=== PATIENT | male | born 1990 | race Caucasian/White ===

== ENCOUNTER → 2021-04-22 13:57 | Outpatient (BNVA) | payer OTHER, SELFPAY | PROVIDERS: Family Provider Family Medicine; PCP Family Medicine; Visit Provider Family Medicine | DX: J06.9 Acute upper respiratory infection, unspecified (principal); Z20.822 Contact with and (suspected) exposure to COVID-19 | CPT/HCPCS: 87400; 87635 ==

== ENCOUNTER 2023-07-02 08:46 | Day surgery (SDC) | payer SELFPAY ==
[2023-07-02] VITALS (16 sets, daily range): BP systolic 116–174; BP diastolic 69–95; PULSE 60–105; RESP 14–26; TEMP 36.4–37.1; O2SAT 95–100; BMI 25.7
--- NOTE | 2023-07-02 08:59 | PC.PHAR ---
pt states takes no prescription medications-pt states only takes tylenol otc prn-no meds show on ext med history
--- NOTE | 2023-07-02 09:07 | ECG_ITS ---
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 Measurements Intervals Exchange Rate: 62 P: 18 IN: 132 QRS: 124 QRSD: 93 T: 96 QT: 364 QTc: 370 Interpretive Statements SINUS RHYTHM INCOMPLETE RIGHT BUNDLE BRANCH BLOCK [90+ ms QRS DURATION, TERMINAL R IN V1/V2, 40+ ms S IN I/aVL/V4/V5/V6] LEFT POSTERIOR FASCICULAR BLOCK [QRS AXIS > 109, INFERIOR Q] Compared to ECG 05/10/2014 13:59:41 Incomplete right bundle-branch block now present Left posterior fascicular block now present Sinus tachycardia no longer present Short IN interval no longer present T-wave abnormality no longer present Electronically Signed On 07-02-2023 9:13:44 CDT by Kevin Maurice M.D. [id number]
[2023-07-02 09:11] LABS: Basophils # 0.1 10^3/uL (0.0-0.1); Basophils % 0.4 %; Eosinophils # 0.4 10^3/uL (0.0-0.8); Eosinophils % 2.7 %; Hematocrit 42.5 % (37-53); Lymphocytes # 1.2 10^3/uL (0.8-4.8); Lymphocytes % 8.9 %; Mean Corpuscular HGB Conc 33.6 g/dL (30-55); Mean Corpuscular Hemoglobin 31.3 pg (27-33); Mean Platelet Volume 9.3 fL (7.4-10.4); Monocytes # 0.8 10^3/uL (0.2-0.9); Monocytes % 6.1 %; Neutrophils # 10.68 10^3/uL (1.8-7.7); Neutrophils % 81.7 %; Nucleated Red Blood Cells % 0 %; Platelet Count 254 10^3/cmm (157-399); Red Blood Count 4.57 10^6/uL (3.85-5.65); Red Cell Distribution Width 12.3 % (12.1-15.1); White Blood Count 13.06 10^3/uL (3.29-11.43)
[2023-07-02] MEDS: sodium chloride 0.9% 1,000 ML 999 ML IV ×3 (09:16→13:03)
[2023-07-02 09:28] LABS: Alanine Aminotransferase 122 U/L (0-41); Albumin Level 4.5 g/dL (3.5-5.2); Alkaline Phosphatase 70 U/L (40-130); Anion Gap 14.1 (5-19); Aspartate Amino Transferase 35 U/L (0-40); Blood Urea Nitrogen 8 mg/dL (6-20); Carbon Dioxide 24 mmol/L (22-29); Chloride 103 mmol/L (98-107); Creatinine Clr Calc Pharmacy 176.8582; Globulin 2.6 g/dL (1.3-4.6); Glomerular Filtration Rate 132.4 mL/min (90-130); Glucose 125 mg/dL (65-115); Lipase 10 U/L (13-60); Osmolality Calculated 284 mOsm/kg (285-295); Potassium 4.1 mmol/L (3.5-5.1); Sodium 137 mmol/L (136-145); Total Bilirubin 0.9 mg/dL (0.15-1.2); Total Protein 7.1 g/dL (6.6-8.7)
--- NOTE | 2023-07-02 10:02 | CT_ITS ---
WS: [id number] Examination: CT abdomen pelvis w con* [id number] Reason for Exam: Lower abd pain Date: July 02, 2023 Comparison: None. DLP: 575.[address] scans at [facility] use at least one of these dose optimization techniques: automated e xposure control; mA and/or kV adjustment per patient size (includes targeted exams where dose is matc hed to clinical indication); or iterative reconstruction. Findings: The heart is normal in size. There is no pleural effusion. There is minimal basilar atelectasis or in filtrate suspected particularly on the right. The liver is prominent in size. Hepatic steatosis is suspected. In the upper liver beneath the diaphr agm there is a 14 mm hyperdense lesion. The gallbladder is present. The portal vein is patent. The spleen is enlarged. There is no adrenal mass. The kidneys are well-perfused. There is no stone or hydronephrosis. The aorta appears unremarkable The pancreas is not enlarged There is no small bowel obstruction. Fluid is identified in mildly prominent distal small bowel and p roximal colon. There is limited uncomplicated sigmoid diverticulosis. The appendix measures up to 8 mm the wall appears mildly prominent. I see no surrounding fluid or inf lammation. There is no free fluid or free air. Scattered mildly prominent mesenteric lymph nodes are identified. Mildly prominent inguinal lymph nod es are present. Impression: The liver is prominent in size with suspected hepatic steatosis. There is a 14 mm hyperdense lesion in the upper liver. This may represent a hemangioma however furthe r evaluation is needed. I recommend ultrasound of the liver. There is splenomegaly. There is no bowel obstruction. There is fluid in the distal small bowel and proximal colon. This may be related to enteritis or diarrheal state. The appendix is prominent without obvious associated inflammatory process. Laboratory and clinical co rrelation to exclude early appendicitis is needed. Prominent scattered lymph nodes are present.
[2023-07-02] MEDS: ondansetron 2 mg/ML SDV 2 mL 4 MG IVP (10:09)
[2023-07-02] MEDS: morphine 4 mg/mL SDV 1 mL IVP (10:11)
[2023-07-02] MEDS: iohexol 350 mg/mL 500 mL Btl (per mL) IV (10:22)
--- NOTE | 2023-07-02 10:37 | ED_ITS ---
HPI - Abdominal Pain 2 General: Chief Complaint: Abdominal Pain Stated Complaint: abd pain, N/V Time Seen by Provider: 07/02/23 08:51 Source: patient Mode of arrival: ambulatory History of Present Illness: 32-year-old male presents emergency room complaining of abdominal pain began yesterday morning persisted and worsened. Relates positive to the right side of his abdomen mid to lower abdomen he denies dysuria urgency or frequency hematuria no vomiting or diarrhea no hematemesis or coffee-ground emesis. No history of nephrolithiasis. MD elicited complaint: abdominal pain Onset (ago): minute(s) Pain Consistency: constant Location: None Quality: sharp Exacerbating factors: nothing Relieving factors: nothing Associated Symptoms: Reports GI cramping and poor appetite; Denies anorexia, belching, bloating, change in bowel habits, change in stool character, chills, coffee ground emesis, constipation, diarrhea, dyspepsia, dysuria, excessive flatus, fever(s), heartburn, hematochezia, hematuria, hematemesis, fecal incontinence, loose stools, melena, nausea, syncope and vomiting Review of Systems 2 Const: Denies: fever(s) or chills Card: Denies: chest pain or syncope Resp: Denies: dyspnea GI: Reports: GI cramping; Denies: abdominal pain, nausea, vomiting, hematemesis, coffee ground emesis, heartburn, diarrhea, constipation, bloating, belching, excessive flatus, fecal incontinence, change in bowel habits, change in stool character, hematochezia or melena : Denies: dysuria, urinary frequency, urinary urgency or hematuria Musc: Denies: neck pain or back pain Skin/Breast: Denies: rash PFSH ED 2 PFSH: Social History Smoking and tobacco/nicotine status: current every day tobacco/nicotine user Physical Exam 2 Const: GENERAL APPEARANCE: cooperative and comfortable O RIENTATION/CONSCIOUSNESS: Yes awake, Yes oriented to person, Yes oriented to place and Yes oriented to time HENMT: COMMON NORMALS: normocephalic, atraumatic and hearing grossly normal bilaterally HEAD & SCALP: normocephalic and atraumatic Resp: COMMON NORMALS: normal respiratory effort, No retractions, No use of accessory muscles and clear to auscultation bilaterally AUSCULTATION: clear to auscultation bilaterally Cardio: COMMON NORMALS: regular rate, regular rhythm and No murmurs present (Cardio) RATE: regular rate RHYTHM: regular rhythm GI: COMMON NORMALS: No hepatosplenomegaly present AUSCULTATION: Yes normoactive bowel sounds PALPATION: Yes Tenderness to palpation present (GI) Details: RLQ, Yes Guarding due to palpation present (GI) in the RLQ and Yes No hepatosplenomegaly present Extremity: COMMON NORMALS: normal to inspection, capillary refill normal, no clubbing, cyanosis or edema, no calf tenderness and no pedal edema Neuro: SENSORIUM/ORIENTATION: Yes oriented to person, Yes oriented to place and Yes oriented to time Skin: COMMON NORMALS: no rashes or lesions noted GENERAL SKIN EXAM: no rashes or lesions noted Course 2 Vital Signs: Vital signs: Vital Signs Temperature 97.6 F 07/02/23 08:54 Pulse Rate 61 07/02/23 12:11 Respiratory Rate 18 07/02/23 08:54 Blood Pressure 137/83 07/02/23 12:11 Pulse Oximetry 100 07/02/23 12:11 Oxygen Delivery Me thod Room Air 07/02/23 12:11 MDM - Abdominal Pain Medical Decision Making Acute appendicitis. Exam is very convincing for acute appendicitis than his history as well. Repeat exam focal tenderness to the right lower quadrant. Definitely has rebound. White count elevated with left shift. CT shows thickening of the appendix not a lot of inflammation and periappendiceal. Radiology report says possible early appendicitis. Based on his clinical presentation and his leukocytosis I do believe he has acute appendicitis. Dr. Patton was consulted he seen the patient in department. He is anticipating appendectomy. Patient given IV fluids Cipro and Flagyl. He will be taken from the ER to preop. Differential Diagnosis Likely abdominal pain, acute appendicitis and calculus of kidney Medical Records I reviewed the patient's medical records. Lab Data I reviewed the patient's lab results. 07/02/23 09:04 07/02/23 09:04 Labs/Radiology: Laboratory Results WBC 13.06 10^3/uL (3.29-11.43) H 07/02/23 09:04 RBC 4.57 10^6/uL (3.85-5.65) 07/02/23 09:04 Hgb 14.30 g/dL (11.27-16.99) 07/02/23 09:04 Hct 42.5 % (37-53) 07/02/23 09:04 MCV 93.0 fl (82-101) 07/02/23 09:04 MCH 31.3 pg (27-33) 07/02/23 09:04 MCHC 33.6 g/dL (30-55) 07/02/23 09:04 RDW 12.3 % (12.1-15.1) 07/02/23 09:04 Plt Count 254 10^3/cmm (157-399) 07/02/23 09:04 MPV 9.3 fL (7.4-10.4) 07/02/23 09:04 Neut % (Auto) 81.7 % 07/02/23 09:04 Lymph % (Auto) 8.9 % 07/02/23 09:04 [place] % (Auto) 6.1 % 07/02/23 09:04 Eos % (Auto) 2.7 % 07/02/23 09:04 Baso % (Auto) 0.4 % 07/02/23 09:04 Neut # (Auto) 10.68 10^3/uL (1.8-7.7) H 07/02/23 09:04 Lymph # (Auto) 1.2 10^3/uL (0.8-4.8) 07/02/23 09:04 Murray # (Auto) 0.8 10^3/uL (0.2-0.9) 07/02/23 09:04 Eos # (Auto) 0.4 10^3/uL (0.0-0.8) 07/02/23 09:04 Baso # (Auto) 0.1 10^3/uL (0.0-0.1) 07/02/23 09:04 Nucleated RBC % (auto) 0 % 07/02/23 09:04 Nucleated RBCs # 0.0 /100WBC 07/02/23 09:04 Sodium 137 mmol/L (136-145) 07/02/23 09:04 Potassium 4.1 mmol/L (3.5-5.1) 07/02/23 09:04 Chloride 103 mmol/L (98-107) 07/02/23 09:04 Carbon Dioxide 24 mmol/L (22-29) 07/02/23 09:04 Anion Gap 14.1 (5-19) 07/02/23 09:04 BUN 8 mg/dL (6-20) 07/02/23 09:04 Creatinine 0.7 mg/dL (0.7-1.2) 07/02/23 09:04 GFR Calculation 132.4 mL/min (90-130) H 07/02/23 09:04 Glucose 125 mg/dL (65-115) H 07/02/23 09:04 Calculated Osmolality 284 mOsm/kg (285-295) L 07/02/23 09:04 Calcium 9.0 mg/dL (8.5-10.5) 07/02/23 09:04 Total Bilirubin 0.9 mg/dL (0.15-1.2) 07/02/23 09:04 AST 35 U/L (0-40) 07/02/23 09:04 ALT 122 U/L (0-41) H 07/02/23 09:04 Alkaline Phosphatase 70 U/L (40-130) 07/02/23 09:04 Total Protein 7.1 g/dL (6.6-8.7) 07/02/23 09:04 Albumin 4.5 g/dL (3.5-5.2) 07/02/23 09:04 Globulin 2.6 g/dL (1.3-4.6) 07/02/23 09:04 Lipase 10 U/L (13-60) L 07/02/23 09:04 Urine Color Yellow (Yellow) 07/02/23 10:50 Urine Appearance Sl hazy (CLEAR) A 07/02/23 10:50 Urine pH 8 (5-7) H 07/02/23 10:50 Ur Specific [place] 1.015 (1.005-1.030) 07/02/23 10:50 Urine Protein Neg (Negative) 07/02/23 10:50 Urine Glucose (UA) Norm (Normal) 07/02/23 10:50 Urine Ketones Negative (Negative) 07/02/23 10:50 Urine Blood Neg (Negative) 07/02/23 10:50 Urine Nitrate Negative (Negative) 07/02/23 10:50 Urine Bilirubin Neg (Negative) 07/02/23 10:50 Prot Sulfosalicylic Acd Negative (Negative) 07/02/23 10:50 Urine Urobilinogen Norm mg/dL (Negative) 07/02/23 10:50 Ur Leukocyte Esterase Negative (Negative) 07/02/23 10:50 Urine RBC None /hpf (0-2) 07/02/23 10:50 Urine WBC Rare /hpf (0-5) 07/02/23 10:50 Ur Squamous Epith Cells None /hpf (0-5) 07/02/23 10:50 Amorphous Sediment Not Reportable 07/02/23 10:50 Urine Bacteria None /hpf (NONE) 07/02/23 10:50 Urine Mucus None /hpf 07/02/23 10:50 All radiology interpretation(s) finalized by discharge Discharge Plan Discharge Patient Disposition: Admitted As Inpatient Clinical Impression: Acute appendicitis Condition: Stable Prescriptions: No Action Tylenol Ex Str Rapid Release 500 mg Tablet 1,000 mg PO Q6H PRN (Reason: Pain) Coding Level of Care Code ED Stuffed Casing Tier for Arlet Martinez
[2023-07-02 11:18] LABS: Add Urine Microscopic? YES; Bilirubin Urine Neg (Negative); Blood Urine Neg (Negative); Glucose Urine UA Norm (Normal); Ketones Urine Negative (Negative); Leukocyte Esterase Urine Negative (Negative); Nitrate Urine Negative (Negative); Protein Urine Neg (Negative); Specific Gravity, Urine 1.015 (1.005-1.030); Sulfosalicylic Acid Urine Negative (Negative); Urine Appearance SL Hazy (CLEAR); Urine Color Yellow (Yellow); Urobilinogen Urine Norm (Negative); pH Urine 8 (5-7)
[2023-07-02 11:20] LABS: Add Urine Culture? No; WBC Urine RARE /hpf (0-5)
[2023-07-02] MEDS: ciprofloxacin 400 MG/200 ML PREMIX 200 MG IV (13:04)
--- NOTE | 2023-07-02 13:12 | P.HP_ITS ---
Providers/Chief Complaint 2 Chief Complaint: abd pain, N/V History of Present Illness Juan Antonio Jaime is a 32 year old male who presents to hospital with 1 day history of abdominal pain. He reports that this is the second time this has happened in the last several months. Yesterday began having diffuse abdominal pain but that localized into the right lower quadrant radiating to his back this morning. Palpation makes his pain worse. Nothing makes the pain better. He does report nausea and vomiting. Denies any diarrhea, constipation, hematochezia, melena and/or hematemesis. A CT of the abdomen pelvis shows a prominent appendix equivocal for appendicitis. He has a leukocytosis. Review of Systems 2 General: Reports: 10 or more systems reviewed and unremarkable except in HPI and below Medications/Allergies Home Medications Medication Instructions Recorded Confirmed Last Taken Type acetaminophen 500 mg tablet 1,000 mg PO Q6H PRN Pain 07/02/23 07/02/23 Unknown History Allergies Allergy/AdvReac Type Severity Reaction Status Date / Time Penicillins Allergy Mild HIVES Verified 07/02/23 08:59 PFSH Acute 2 PFSH: Social History Smoking and tobacco/nicotine status: current every day tobacco/nicotine user Vitals/I&O/Wt Last Vital Signs Temp 97.6 F 07/02/23 08:54 Pulse 64 07/02/23 13:10 Resp 18 07/02/23 08:54 BP 126/86 07/02/23 13:10 Pulse Ox 96 07/02/23 13:10 O2 Del Method Room Air 07/02/23 13:10 07/01/23 07/02/23 07/02/23 22:59 06:59 14:59 Intake Total 1000 / 1000 Balance 1000 / 1000 Weight last 48 hrs Weight 190 lb Physical Exam 2 Narrative: General : Patient is well developed , no acute distress, oriented x3 Head : Normal cephalic, a-traumatic. Ears : Pinnae and external canal are normal. Hearing is normal. Eyes : PERRLA, Sclera and injection are normal. No conjunctival discharge. Nose : Mucous membranes are without erythema. Throat : buccal mucosa is normal, gums are without significant recession or hypertrophy. Lungs : Equal chest rise bilaterally, no use of accessory muscles, trachea is midline. Cor : Rate and rhythm are normal. Abdomen : Soft, ND, tender right lower quadrant, negative Rovsing's, no g/r/m Extremities : No edema, no cyanosis or clubbing, dorsalis pedis pulses are present bilaterally, non-tender to palpation of calves. Upper extremities are normal bilaterally. Back : non-tender to palpation, no CVA tenderness. Neuro : CN II - XII intact, Upper and lower extremities have equal and full strength Data 07/02/23 09:04 07/02/23 09:04 A&P Assessment and plan (1) Acute appendicitis: Plan Laparoscopic Appendectomy The risks and benefits of the procedure, including but not limited to, bleeding, infection, scar, numbness, pain, damage to surrounding structures, conversion to an open procedure, were explained to the patient. He is understanding of the risks and wishes to proceed. Attestations 2 Medical Necessity Statement*: Patient may go home after the procedure if it is uncomplicated. If perforated he will need to stay in the hospital for at least 1 night in the hospital for IV antibiotics Coding Level of Care Code 37471 Diagnoses Acute appendicitis K35.80
--- NOTE | 2023-07-02 14:16 | ANES.PREANE2 ---
Pre-Anesthetic Assessment Height/Weight: Height 1.83 m Weight 86.183 kg Temp Pulse Resp BP Pulse Ox O2 Del Method 97.9 F 60 18 132/79 97 Room Air 07/02/23 13:19 07/02/23 13:19 07/02/23 13:19 07/02/23 13:19 07/02/23 13:19 07/02/23 13:19 Operation Date: 07/02/23 14:00 Proposed Procedures p Laparoscopic Appendectomy(Not Applicable) - Jama Patton DO Familial anesthetic complications: None Was Beta Opal taken within 24 hours: N/A Was Clonidine taken within 24 hours: N/A Last intake: Intake Last Liquid Date 07/02/23 Last Liquid Time 12:00 Last Solid Date 07/01/23 Last Solid Time 13:00 Social No alcohol and No tobacco Exam alert, oriented x 3, clear to auscultation bilaterally and regular rate & rhythm Airway Mallampati: Class II Dentition: partials and other Anesthetic Plan ASA status: 1 Anesthesia: General Risk of > 500 ml blood loss (7ml/kg in children): No Medications/Allergies Home Medications Medication Instructions Recorded Confirmed Last Taken Type acetaminophen 500 mg tablet 1,000 mg PO Q6H PRN Pain 07/02/23 07/02/23 Unknown History Allergies Allergy/AdvReac Type Severity Reaction Status Date / Time Penicillins Allergy Mild HIVES Verified 07/02/23 08:59 PFSH Anesthesia Social History Smoking and tobacco/nicotine status: current every day tobacco/nicotine user Data Anesthesia 07/02/23 09:04 07/02/23 09:04 Short CBC 07/02/23 Range/Units 09:04 WBC 13.06 H (3.29-11.43) 10^3/uL Hgb 14.30 (11.27-16.99) g/dL Hct 42.5 (37-53) % MCV 93.0 (82-101) fl Plt Count 254 (157-399) 10^3/cmm Neut % (Auto) 81.7 % Neut # (Auto) 10.68 H (1.8-7.7) 10^3/uL BMP 07/02/23 09:04 Sodium 137 Potassium 4.1 Chloride 103 Carbon Dioxide 24 BUN 8 Creatinine 0.7 Glucose 125 H Calcium 9.0 Liver Function 07/02/23 Range/Units 09:04 Total Bilirubin 0.9 (0.15-1.2) mg/dL AST 35 (0-40) U/L ALT 122 H (0-41) U/L Alkaline Phosphatase 70 (40-130) U/L Albumin 4.5 (3.5-5.2) g/dL Urine 07/02/23 Range/Units 10:50 Urine Color Yellow (Yellow) Urine Appearance Sl hazy A (CLEAR) Urine pH 8 H (5-7) Ur Specific [place] 1.015 (1.005-1.030) Urine Protein Neg (Negative) Urine Glucose (UA) Norm (Normal) Urine Ketones Negative (Negative) Urine Nitrate Negative (Negative) Urine Bilirubin Neg (Negative) Ur Leukocyte Esterase Negative (Negative) Urine RBC None (0-2) /hpf Urine WBC Rare (0-5) /hpf Cardiac Studies: No Data to Display
[2023-07-02] MEDS: metroNIDAZOLE IV 500 MG/100 ML PREMIX 100 MG IV (14:46)
[2023-07-02] MEDS: lidocaine-epi 2% PF 1:200,000 20 mL SDV INJECTION (15:19)
--- NOTE | 2023-07-02 15:31 | P.OP_ITS ---
Operative Report Date of procedure: July 02, 2023 Pre-op diagnosis: Acute appendicitis Post-op diagnosis: same Procedure done: Laparoscopic appendectomy Implants: none Specimens removed/disposition: Appendix Surgeon: Jama Patton DO Anesthesia: General and Local Estimated blood loss (mL): 5 Complications: None apparent Brief History: This very pleasant 32-year-old gentleman came to the hospital with a 1 day history of abdominal pain that localized to the right lower quadrant. He had leukocytosis and CT abdomen pelvis was equivocal for early acute appendicitis. Laparoscopic appendectomy was indicated. The risk and benefits were explained and documented. Procedure: Patient was wheeled into the operative room and placed on the OR table in a supine position. Abdomen was inspected prepped and draped in usual sterile fashion. Time-out was performed and all present were in agreement. A 15 blade scalp was used to make a stab incision in the left upper quadrant and intra- abdominal insufflation was achieved using a Veress needle. After localizing the tissue incisions were made and a 12 millimeter trocar was placed into the umbilicus as well as a 5mm in the right lower quadrant and a 5 mm in the left lower quadrant . The appendix was identified and was mildly inflamed. I used the Voyant to ligate the mesoappendix at the base. I then used 2 PDS endo-loops to snare the base of the appendix. I then used the Voyant to ligate the appendix distally. The appendix was removed from the abdomen using an Endo- Catch bag through the umbilical incision. I examined the abdomen and no further pathology was identified. Hemostasis was noted. I then closed the umbilical site with a Robert-Trav and 0 Vicryl suture in a figure of 8 fashion. All ports removed. Skin was washed and dried. Incisions were closed with 4 O Vicryl in a subcuticular interrupted fashion. Skin glue was applied. Patient tolerated the procedure well.
[2023-07-02] MEDS: HYDROcodone-acetaminophen 7.5-325 mg Tablet 1 TAB PO (16:34)
--- NOTE | 2023-07-02 16:45 | ANE.PACU2 ---
Inpatient post-anesthesia follow up: Airway intact: Yes Vital signs: Temperature 98.8 F Pulse Rate 83 Respiratory Rate 17 Blood Pressure 137/77 Pulse Oximetry 97 Oxygen Delivery Me thod Room Air Oxygen Flow Rate Fraction of Inspir ed Oxygen Hydration adequate: Yes Nausea and vomiting: No Pain level: 1 Mental status: Baseline
== END 2023-07-02 16:49 | disposition home or self-care (01) ==
LOC: ER 12:40 → OR 13:06
PROVIDERS: Emergency Provider Family Medicine; Visit Provider Surgery
PROC: 0DTJ4ZZ Resection of Appendix, Percutaneous Endoscopic Approach (ICD-10-PCS; CPT 44970; principal; 2023-07-02 14:00)
DX: K35.80 Unspecified acute appendicitis (principal); F17.200 Nicotine dependence, unspecified, uncomplicated
CPT/HCPCS: 44970; 36415; 74177; 80053; 81001; 83690; 85025; 88304; 93005; J0330; J0744; J1100; J2250; J2270; J2405; J2704; J3010; J3490; J7030; Q9967

== ENCOUNTER 2023-08-20 14:41 | Emergency (ER) | payer SELFPAY ==
[2023-08-20 14:56] VITALS: BP 135/87; PULSE 70; RESP 16; TEMP 36.6; O2SAT 98; BMI 25.0
--- NOTE | 2023-08-20 15:11 | DCPLANNER ---
Message sent to Ortho for urgent follow up
--- NOTE | 2023-08-20 15:14 | W.ED.EXTPRO ---
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 He is on the palmar aspect its roughly a centimeter he has no bleeding at this time he states that he feels like he cannot move his thumb all the way and flexion. He denies any pain currently. He is unsure when his last tetanus was Associated symptoms: Deny chest pain, fever(s) or rash Review of Systems Const: Denies: fever(s), chills, body aches or change in appetite ENMT: Denies: throat pain or dental pain Card: Denies: chest pain Resp: Denies: dyspnea GI: Denies: abdominal pain, nausea, vomiting or diarrhea Musc: Denies: neck pain or back pain Skin/Breast: Denies: rash Neuro: Denies: headache(s) PFSH ED PFSH: Social History Smoking and tobacco/nicotine status: current every day tobacco/nicotine user Physical Exam Const: COMMON NORMALS: no acute distress, patient oriented x3 and healthy appearing HENMT: COMMON NORMALS: normocephalic and atraumatic HEAD & SCALP: normocephalic and atraumatic Neck/C-Spine: COMMON NORMALS: full ROM and supple Chest: COMMONS NORMALS: normal inspection of the chest Resp: COMMON NORMALS: normal respiratory effort Cardio: COMMON NORMALS: regular rate, regular rhythm and No murmurs present (Cardio) RATE: regular rate RHYTHM: regular rhythm Extremity: NARRATIVE EXTREMITY EXAM: 1 cm laceration base of left thumb on the palmar aspect no bleeding at this time laceration is very small and able to see any deep structures he does have some limited flexion on exam of his thumb Neuro: COMMON NORMALS: patient oriented x3, moves all extremities and no focal motor deficits Psych: COMMON NORMALS: mental status grossly normal, Normal thought process present and cooperative THOUGHT PROCESS: Normal thought process present Skin: COMMON NORMALS: no rashes or lesions noted and no wounds GENERAL SKIN EXAM: no rashes or lesions noted Procedures Laceration Laceration 1: Site: hand Side (If applicable): left Size (cm): 1 Description: linear Depth: simple, single layer Pre-repair: wound explored Skin layer closed with: other (dermabond) Course Vital Signs: Vital signs: Vital Signs Temperature 97.8 F 08/20/23 14:56 Pulse Rate 70 08/20/23 14:56 Respiratory Rate 16 08/20/23 14:56 Blood Pressure 135/87 08/20/23 14:56 Pulse Oximetry 98 08/20/23 14:56 Oxygen Delivery Me thod Room Air 08/20/23 14:56 MDM - Extremity (Nontraumatic) Medical Decision Making Patient presents here with a thumb laceration he has some decreased flexion of the thumb lacerations very small unable to see the tendon but will place in a thumb spica and get follow-up with orthopedics to rule out a tendon laceration did close the wound with tissue adhesive updated on status Medical Records I reviewed the patient's medical records. All radiology interpretation(s) finalized by discharge Discharge Plan Discharge Patient Disposition: Home Clinical Impression: Laceration of thumb Condition: Stable Prescriptions: No Action acetaminophen 500 mg Tablet 1,000 mg PO Q6H PRN (Reason: Pain) Hold Instructions: Resume on 07/07/23. hydrocodone-acetaminophen 7.5-325 mg tablet 1 tab PO Q6H PRN (Reason: pain) Qty: 20 0RF Colace 100 mg capsule 100 mg PO BID Qty: 14 0RF Discharge Orders: Discharge ED (Routine); Ordered 08/20/23 Ordered By: Rianna Frank Referrals: Debi Anders MD [Physician] - 1-3 days Discharge Diet: Advance as tolerated Discharge Activity: Resume usual activity Patient Instructions: Finger Laceration (ED), Skin Adhesive Care (ED) Coding Level of Care Code ED Health Practice Manager for Arlet Martinez
[2023-08-20] MEDS: tetanus-dipt-pertussis 0.5 mL SDV IM (15:26)
== END 2023-08-20 15:56 | disposition home or self-care (01) ==
PROVIDERS: Emergency Provider Emergency Medicine
DX: S61.012A Laceration without foreign body of left thumb without damage to nail, initial encounter (principal); Z72.0 Tobacco use; W26.0XXA Contact with knife, initial encounter; Z23 Encounter for immunization
CPT/HCPCS: 12001; 90471; 90715; 99283

== ENCOUNTER 2024-12-18 20:12 | Inpatient (IN) | payer OTHER, MEDICAID, SELFPAY ==
--- OUTSIDE RECORDS SUMMARY | 2022-12-15 04:30 | XMS_ITS | Continuity of Care Document ---
Author Organization [facility] Address [address] [id number] [address] Phone Care Team Providers Care Storage Architect Name Role Phone Teja Adams DDS Unavailable Unavailable Allergies, Adverse Reactions, Alerts Substance Reaction Status Criticality No Known Allergies Active No Inform ation Medications Medication Instructions Dosage Effective Dates (start - stop) Status Comments [place] 10 mg-325 mg tablet take 1 tablet by oral route every 4 - 6 hours as needed for pain for tooth extraction - Active Lidocaine Viscous 2 % mucosal solution take 15 milliliter by oral route every 3 hours to affected area in mouth as needed for pain 15 milliliter - Active Keflex 250 mg capsule - Active Procedures Procedure Date Limited Oral Evaluation Problem Focused Extraction, Erupted Tooth Or Exposed Denise t (Elevati Intraoral Periapical First Film Limited oral eval, x-ray & 1st extractio n Intraoral Periapical First Film Limited Oral Evaluation Problem Focused Extraction, Erupted Tooth Or Exposed Denise t (Elevati Urgent Each Additional Extraction EDR Approval Note OFFICE/OUTPATIENT VISIT, EST OFFICE/OUTPATIENT VISIT, NEW Advance Directives Directive Yes / No Effective Date File Name No Information Encounters Encounter Description Practice Location Reason(s) For Visit Diagnoses Date Provider Providers Copied on Encounter [facility], [id number], [id number], [place] tel:[phone] [facility] Encounter for dental exam and cleaning w/o abnormal findings 3 Angie Lezama. [address], [place], [id number], [place]. tel:[phone] Referring Provider: Teja Adams, [address] [place], [address] . tel:[phone] [facility], [id number], [id number], [place] tel:[phone] [facility] No Information 4 No Information OFFICE/OUTPAT IENT VISIT, [facility], [id number], [id number], [place] tel:[phone] [facility] recent allergic reaction to keflex (chief complaint)m outh still bothering pt (chief complaint) No Information 4 No Information OFFICE/OUTPAT IENT VISIT, [facility], [id number], [id number], [place] tel:[phone] [facility] teeth pain (chief complaint) No Information 4 No Information Family History Family Member Type Diagnosis Age At Onset Maternal grandmother Problem (finding) alzheimer's dis ease Paternal grandfather Problem (finding) prostate cancer Payers Payer name Insurance type Covered libertarian ID Pedritotavares meredith(s) Nancy Bundled Slide [phone] Social History Type Description Quantity Date Captured Comments Sex Male Smoking Status No Information Gender Identity Male Chief Complaint And Reason For Visit No Information Reason For Referral Reason For Referral No Information History Of Present Illness Encounter Date Complaint History Of Prese nt Illness recent allergic reaction to kefl ex mouth still bothering pt teeth pain Functional Status Date Functional Assessmen t No Information Instructions Date Instruction Additional Infor mation pt has appt tomorrow with [facility] in [place], note for work given, no change in medications made at this visit Related to Inflammatory conditions of jaw llidocaine viscous g iven for pain Medication instructions were provided to the patient. The patient verbalized an understanding of all instructions. Related to Pain in tooth informed pt of [facility], or dentist of his choice to take care of his current dental needs The patient verbalized an understanding of all instructions/plan. Related to Dental caries, unspecified will treat with amox icillin Medication instructions were provided to the patient. F/U as needed. The patient verbalized an understanding of all instructions. Related to Inflammatory conditions of jaw Assessments Type Assessment Date No Information Patient Care Teams Name Effective Dates (start - stop) Status Members No Information
--- OUTSIDE RECORDS SUMMARY | 2023-12-15 03:15 | XMS_ITS ---
Author Organization [facility] edicine Address [address] [place] [address] Care Team Providers Care Coal Loader Name Role Phone Bridgett Garcia [phone] Allergies Allergen (clinical drug ingredient) Drug/Non Drug Allergy documented on EMR Reaction Allergy Type Onset Date Status PCN (uncoded) Unknown Allergy Active REASON FOR VISIT MQ Pre Emp DH Rach Clear, [employer] Pre-Employment. Social History Tobacco Use: Social History Observation Description Date Details (start date - stop date) Former Smoker NA - NA Smoking Question Answer Notes Smoking Status: former smoker Vital Signs Heart Rate 61 /min 12/15/2023 Blood pressure systolic 142 mm Hg 12/15/19 24 Blood pressure diastolic 86 mm Hg 024 Height 72 in 12/15/2023 Weight 193.4 lbs 12/15/2023 BMI 26.23 kg/m2 12/15/2023 Respiratory Rate 18 /min 12/15/2023 Oximetry 99 % 12/15/2023 Procedures Procedure Date Ordered Date Performed Result Body Sit e Vision Screening 12/15/2023 N/A Hearing Screening 12/15/2023 12/15/2023 N/A PFT 12/15/2023 N/A BTE 12/15/2023 12/15/2023 N/A Encounters Encounter Location Date Provider Diagnosis [facility] [address] [place] [address] 12/15/2023 Bridgett Garcia Encntr for general adult medical exam w/o abnormal findings Z00.00 Assessments Encounter Date Diagnosis (ICD Code) Assessment Notes Treatment Notes Treatment Clinical Notes Section Notes 12/15/2023 Encntr for general adult medical exam w/o abnormal findings (ICD-10 - Z00.00) Plan Of Treatment Pending Test Test Name Order Date Urinalysis, Routine 12/15/2023 Vision Screening 12/15/2023 Hearing Screening 12/15/2023 PFT 12/15/2023 DOT DRUG SCREEN 12/15/2023 RAPID READ DRUG SCREEN 12/15/2023 Next Appt Details Follow Up: Clear for PDT , R aubree: Progress Notes * Juan Antonio SANTACRUZ GDOB: [birth year] (34 yo M)Acc No.[id number]:12/15/2023 PRE EMP HWM Patient: Juan Antonio VARGAS Provider: Lor Garcia :1990 A ge:33 Y S ex:Male Date:12/15/2023 Address:[address] [place] [address], [id number] Subjective: * Chief Complaints: * 1 . MQ Pre Emp DH Rach Clear. 2. [employer] Pre-Employment.. * HPI: A DDITIONAL COMPLAINTS: The patient presents today for preemployment examination for [employer]. * ROS: G eneral/Constitutional: Denies C hange in appetite. D enies C hills. D enies F atigue. D enies F ever. D enies H eadache. D enies L ightheadedness. D enies S leep disturbance. D bryce [facility]: [facility]. R espiratory: Denies B reathing pattern. D enies C hest pain.?Denies C ough. D enies H emoptysis. D enies P ain with inspiration. D enies S hortness of breath at rest. D enies S hortness of breath with exertion. D enies?Sputum production. D enies W heezing. G astrointestinal: Denies A bdominal pain. D enies B lood in stool.?Denies C hange in bowel habits. D enies C onstipation. D enies D iarrhea.?Denies D ifficulty swallowing. D enies N ausea. D enies V omiting. ? N eurologic: Denies B alance difficulty. D enies C oordination.?Denies D ifficulty speaking. D enies D izziness. D enies F ainting. D enies G ait abnormality. D enies I rritability. D enies L oss of strength. D enies L oss of use of extremity. D enies L ow back pain. D enies P ain. D enies S eizures. D enies T ingling/Numbness. D enies T ransient loss of vision.?Denies T remor. P sychiatric: Denies A nxiety. D enies D epressed mood. D enies D ifficulty sleeping. D enies E ating disorder. D enies L oss of appetite.?Denies S tressors. D enies S ubstance abuse. D enies S uicidal thoughts. * Medical History: L eft knee pain - 2019 no injury, never had evaluation, Low Back Pain - 2019, no injury, never had evaluation. * Surgical History: e ustachian tuboplasy (child) , appendectomy , L hand tendon repair . * Hospitalization/Major Diagno stic Procedure: e ustachian tuboplasy (child) . * Social History: T obacco Use: S moking S moking Status: f ormer smoker S mokeless Tobacco Y es D rugs/Alcohol: A lcohol Use H ow often do you drink? O ccassionally * Medications: N one * Allergies: P CN. Objective: * Vitals: H R:61, BP:142/86mm Hg, Ht: 72, Wt: 193.4, BMI:26.23Index, RR: 18, Oxygen sat %:99%. Past Vitals:* 12/30/2022 BP:130/85mm Hg, BMI:25.09Ind ex * 10/23/2021 BP:131/79mm Hg, BMI:22.51Ind ex * Examination: G eneral Examination: GENERAL APPEARANCE: i n no acute distress, well developed, well nourished. HEAD: n ormocephalic, atraumatic. EYES: p upils equal, round, reactive to light and accommodation. EARS: n ormal. ORAL CAVITY: m ucosa moist. THROAT: c lear. NECK/THYROID: n good supple, full range of motion, no cervical lymphadenopathy. SKIN: n o suspicious lesions, warm and dry. HEART: n o murmurs, regular rate and rhythm, S1, S2 normal.? LUNGS: c lear to auscultation bilaterally. ABDOMEN: n ormal, bowel sounds present, soft, nontender, nondistended, no hernias noted on exam.. EXTREMITIES: n o clubbing, cyanosis, or edema, full range of motion, no painful joints. NEUROLOGIC: n onfocal, motor strength normal upper and lower extremities, sensory exam intact. Assessment: * Assessment: 1. E ncntr for general adult medical exam w/o abnormal findings - Z00.00 (Primary) ? Plan: * Treatment: ?LAB: RAPID READ DRUG SCREEN* Tyrell Ceja 12/15/2023 08:45:23 AM CDT >negative ?LAB: Urinalysis, Routine (Collection Date & Time - 12/15/2023)* Value Reference Range U rine-Color yellow * A ppearance clear * S pecific Willet 1.010 * p H 7.0 * G lucose neg * P rotein neg * O ccult Blood neg * B ilirubin neg * U robilinogen,Semi-Qn 0.2 * N itrite, Urine neg * K etones neg * W BC Esterase neg * Tyrell Ceja 12/15/2023 08:45:55 AM CDT >normal ?Procedure: Vision Screening* Tyrell Ceja 12/15/2023 08:47:19 AM CDT >Both 20/20, R 20/17, L 20/25---UNCORRECTED ?Procedure: PFT* Tyrell Ceja 12/15/2023 09:16:34 AM CDT >passed ?Procedure: Hearing Screening (Performed Date - 12/15/2023)* Value Reference Range H z 500 Left 10 * H z 1000 Left 155 * H z 2000 Left 5 * H z 3000 Left 15 * H z 4000 Left 15 * H z 6000 Left 30 * H z 8000 Left 10 * H z 500 Right 5 * H z 1000 Right 5 * H z 2000 Right 5 * H z 3000 Right 5 * H z 4000 Right 15 * H z 6000 Right 15 * H z 8000 Right 15 * Tyrell Ceja 12/15/2023 08:52:28 AM CDT >normal ?Procedure: BTE (Performed Date - 12/15/2023)* Value Reference Range B TE Results pass * Denise Lujan 12/15/2023 12 :07:14 PM CDT >pass * Procedure Codes: D SRR Drug Screen Rapid Read, HEARS HEARING SCREEN, PHYSI Physical Exam, DSDOT Drug Screen DOT, BTE Physical Demands Test, VISIS VISION SCREEN, URINE Urinalysis, PFT Pulmonary Function Test * Follow Up: C lear for PDT * Billing Information: * Visit Code: * Procedure Codes: DSRR Drug Screen Rapid Read. HEARS HEARING SCREEN. PHYSI Physical Exam. DSDOT Drug Screen DOT. BTE Physical Demands Test. VISIS VISION SCREEN. URINE Urinalysis. PFT Pulmonary Function Test. * Electronic signature of Celeste Garcia NP on 12/18/2024 at 08:22 PM CDT Sign off status: Pending * Provider: Lor Villafana Jose Date: 0 12/15/2023 Generated for Nina ayala/Kelvin/eTransmitting on: 12/18/2024 08:22 PM CDT History and Physical Notes * HPI (History of Present Illness) Category Sub-Category Detail Notes Category Not es ADDITIONAL COMPLAINTS The pa mariela presents today for preemployment examination for [employer]. Examination Category Sub-Category Detail Notes Category Not es General Examination GENERAL APPEARANCE: in no ac fannie distress, well developed, well nourished HEAD: normocephalic, atrau matic EYES: pupils equal, round, reactive to light and accommodation EARS: normal THROAT: clear NECK/THYROID: neck supple, full ra nge of motion, no cervical lymphadenopathy HEART: no murmurs, regular rate and rhythm, S1, S2 normal LUNGS: clear to auscultatio n bilaterally ABDOMEN: normal, bowel sounds present, soft, nontender, nondistended, no hernias noted on exam. NEUROLOGIC: nonfocal, motor stre ngth normal upper and lower extremities, sensory exam intact SKIN: no suspicious lesion s, warm and dry EXTREMITIES: no clubbing, cyanosi s, or edema, full range of motion, no painful joints ORAL CAVITY: mucosa moist
[2024-12-18 20:20] VITALS: BP 158/98; PULSE 83; RESP 20; TEMP 36.9; O2SAT 99; BMI 22.4
--- OUTSIDE RECORDS SUMMARY | 2024-12-18 20:22 | XMS_ITS | Patient Health Record ---
Author Organization [facility] Address [address] [place] [address] Support Name Relationship Address Phone Juan Antonio Jaime Guarantor Unknown [phone] Allergies Allergen (clinical drug ingredient) Drug/Non Drug Allergy documented on EMR Reaction Allergy Type Onset Date Status PCN (uncoded) Unknown Allergy Active Reason For Referral No Information Social History Tobacco Use: Social History Observation Description Date Details (start date - stop date) Former Smoker NA - NA Smoking Question Answer Notes Smoking Status: former smoker Plan Of Treatment Pending Test Test Name Order Date Urinalysis, Routine 12/15/2023 Vision Screening 06/05/2020 Vision Screening 10/23/2021 Vision Screening 12/30/2022 Vision Screening 12/15/2023 Hearing Screening 10/23/2021 Hearing Screening 06/05/2020 Hearing Screening 12/15/2023 PFT 07/09/2021 PFT 06/05/2020 PFT 12/15/2023 PFT 12/30/2022 DOT DRUG SCREEN 06/05/2020 DOT DRUG SCREEN 12/15/2023 DOT DRUG SCREEN 12/30/2022 BTE 06/05/2020 BTE 12/30/2022 RAPID READ DRUG SCREEN 06/05/2020 RAPID READ DRUG SCREEN 12/15/2023 RAPID READ DRUG SCREEN 12/30/2022 Insurance Providers Payer Name Payer Address Payer Phone Subscriber Number Group Number Insured Name Patient Relationship to Insured Coverage Start Date Coverage End Date [employer] [place] [address] [phone] Juan Antonio Jaime Self - patient is the insured James Pre-Emp [place] [employer] [place]/Sadia Tod Jaimeght Self - patient is the insured Medical (General) History Medical History History ICD Code Left knee pain - 2019 no injury, never h ad evaluation Low Back Pain - 2019, no injury, never h ad evaluation Surgical History Surgery Date(Month/Year) eustachian tuboplasy (child) appendectomy L hand tendon repair Hospitalization History Reason Date(Month/Year) eustachian tuboplasy (child)
--- NOTE | 2024-12-18 20:31 | ED.C_ITS ---
HPI - Psych 2 General: Chief Complaint: Psychiatric Symptoms Stated Complaint: 96 HOUR HOLD Time Seen by Provider: 12/18/24 20:20 History of Present Illness: Patient is a 74-year-old male that was talking to a friend, and apparently or allegedly stated he was going to kill himself. Patient denies any such conversation. He has 96-hour hold papers. He has not been to psychiatric lubin. Denies any drug intake. Associated symptoms: Deny homicidal ideation or suicidal ideation Related Data Home Medications ?Medication ?Instructions ?Recorded ?Confirmed acetaminophen 500 mg tablet 1,000 mg PO Q6H PRN Pain 0 07/02/23 08/26/23 Held on 07/02/23. Instructions: Resume on 07/07/23. Previous Rx's ?Medication ?Instructions ?Recorded docusate sodium 100 mg capsule 100 mg PO BID #14 caps 07/02/23 (Colace) hydrocodone 7.5 mg-acetaminophen 1 tab PO Q6H PRN pain #20 tabs 07/02/23 325 mg tablet Allergies Allergy/AdvReac Type Severity Reaction Status Date / Time Penicillins Allergy Mild HIVES Verified 07/02/23 08:59 Review of Systems 2 Const: Denies: fever(s), chills, body aches or change in appetite Eyes: Denies: change in vision, eye discharge or eye redness ENMT: Denies: throat pain, hoarseness, ear or mastoid pain, ear discharge, nasal discharge or nasal congestion Card: Denies: chest pain, palpitations, irregular heart rhythm or edema Resp: Denies: dyspnea, productive cough, non-productive cough or wheezing GI: Denies: abdominal pain, nausea, vomiting, diarrhea, constipation or hematochezia : Denies: dysuria, urinary frequency, urinary urgency, urinary hesitancy or hematuria Musc: Reports: other (thumb laceration); Denies: joint swelling, joint redness, joint warmth or joint stiffness Skin/Breast: Denies: rash Neuro: Denies: headache(s) Psych: Denies: suicidal ideation or homicidal ideation Mario/Lymph: Denies: enlarged lymph nodes or tender lymph nodes PFSH ED 2 PFSH: Social History Smoking and tobacco/nicotine status: former use of tobacco/nicotine Physical Exam 2 Const: COMMON NORMALS: no acute distress and patient oriented x3 GENERAL APPEARANCE: cooperative HENMT: COMMON NORMALS: normocephalic, moist oral mucous membranes and oropharynx normal HEAD & SCALP: normocephalic NOSE: No nasal discharge present THROAT: tonsils normal Eye: COMMON NORMALS: Equal, round and reactive pupils present GENERAL EYE: appearance normal, both eyes and all related structures PUPIL: Yes Equal, round and reactive pupils present Neck/C-Spine: GENERAL: Yes normal visual inspection CERVICAL SPINE: Yes cervical ROM normal and No Cervical spine tenderness Lymph: LYMPHATIC: no lymphadenopathy noted Chest: COMMONS NORMALS: normal inspection of the chest Resp: COMMON NORMALS: normal respiratory effort and clear to auscultation bilaterally AUSCULTATION: clear to auscultation bilaterally Cardio: COMMON NORMALS: regular rate, regular rhythm and No murmurs present (Cardio) RATE: regular rate RHYTHM: regular rhythm GI: COMMON NORMALS: Normal to inspection, nondistended, normoactive bowel sounds present, Soft to palpation and non-tender PALPATION: Yes Soft to palpation : COMMON NORMALS: Yes no CVA tenderness BLADDER/KIDNEY EXAM: Yes no CVA tenderness Back/Pelvis: COMMON NORMALS: no CVA tenderness Extremity: GENERAL: No cyanosis and No edema LEFT UPPER EXTREMITY: Yes hand & digits (left thumb laceration, laceration healing well, no s/s of infection) Neuro: COMMON NORMALS: patient oriented x3, moves all extremities, no focal motor deficits and gait normal SPEECH: speech normal Psych: COMMON NORMALS: mental status grossly normal Skin: COMMON NORMALS: no rashes or lesions noted and no wounds GENERAL SKIN EXAM: no rashes or lesions noted Course 2 Consultations: Consultation #1: Dr. Wilson excepted patient Vital Signs: Vital signs: Vital Signs Temperature 98.4 F 12/18/24 20:20 Pulse Rate 83 12/18/24 20:20 Respiratory Rate 20 H 12/18/24 20:20 Blood Pressure 158/98 12/18/24 20:20 Pulse Oximetry 99 12/18/24 20:20 [facility] - Psych Medical Decision Making Patient is a 34-year-old gentleman that was brought here for 96-hour hold by [facility]. He has court paperwork in process. Allegedly he told his friend he was suicidal. Patient denies all these events. Dr. Wilson accepted the patient. No other concerns on laboratory data. He feels improved after Zyprexa x 1. He has not had previous inpatient mental health hospitalization. He is pleasant, conversive. Medical Records I reviewed the patient's medical records. Lab Data I reviewed the patient's lab results. 12/18/24 20:44 12/18/24 20:44 Laboratory Results WBC 9.11 10^3/uL (3.29-11.43) 12/18/24 20:44 RBC 4.50 10^6/uL (3.85-5.65) 12/18/24 20:44 Hgb 13.40 g/dL (11.27-16.99) 12/18/24 20:44 Hct 38.8 % (37-53) 12/18/24: MCV 86.2 fl (82-101) 12/18/24 20: MCH 29.8 pg (27-33) 12/18/24 20: MCHC 34.5 g/dL (30-55) 12/18/24 20: RDW 13.0 % (12.1-15.1) 12/18/24 20: Plt Count 289 10^3/cmm (157-399) 12/18/24 20:44 MPV 9.5 fL (7.4-10.4) 12/18/24 20:44 Neut % (Auto) 79.0 % 12/18/24 20:44 Lymph % (Auto) 14.2 % 12/18/24 20:44 [place] % (Auto) 4.7 % 12/18/24 20: Eos % (Auto) 1.3 % 12/18/24 20:44 Baso % (Auto) 0.5 % 12/18/24 20:44 Neut # (Auto) 7.19 10^3/uL (1.8-7.7) 12/18/24: Lymph # (Auto) 1.3 10^3/uL (0.8-4.8) 12/18/24 20:44 [place] # (Auto) 0.4 10^3/uL (0.2-0.9) 12/18/24 20:44 Eos # (Auto) 0.1 10^3/uL (0.0-0.8) 12/18/24 20:44 Baso # (Auto) 0.1 10^3/uL (0.0-0.1) 12/18/24 20:44 Nucleated RBC % (auto) 0 % 12/18/24: Nucleated RBCs # 0.0 /100WBC 12/18/24 20:44 Sodium 139 mmol/L (136-145) 12/18/24 20:44 Potassium 3.5 mmol/L (3.5-5.1) 12/18/24 20:44 Chloride 103 mmol/L (98-107) 12/18/24 20:44 Carbon Dioxide 23 mmol/L (22-29) 12/18/24:44 Anion Gap 16.5 (5-19) 12/18/24:44 BUN 5 mg/dL (6-20) L 12/18/24 20:44 Creatinine 0.6 mg/dL (0.7-1.2) L 12/18/24 20:44 GFR Calculation 156.1 mL/min (90-130) H 12/18/24:44 Glucose 85 mg/dL (65-115) 12/18/24 20:44 Calculated Osmolality 285 mOsm/kg (285-295) 12/18/24: Calcium 8.8 mg/dL (8.5-10.5) 12/18/24:44 Total Bilirubin 0.4 mg/dL (0.15-1.2) 12/18/24 20:44 AST 22 U/L (0-40) 12/18/24:44 ALT 30 U/L (0-41) 12/18/24:44 Alkaline Phosphatase 92 U/L (40-130) 12/18/24 20:44 Total Protein 7.2 g/dL (6.6-8.7) 12/18/24 20:44 Albumin 4.7 g/dL (3.5-5.2) 12/18/24: Globulin 2.5 g/dL (1.3-4.6) 12/18/24 20:44 TSH 2.99 uIU/mL (0.27-4.20) 12/18/24 20:44 Urine Color Yellow (Yellow) 12/18/24 21:44 Urine Appearance Clear (CLEAR) 09/20/25 21:44 Urine pH 6.0 (5-7) 12/18/24 21:44 Ur Specific [place] 1.003 (1.005-1.030) L 12/18/24 21:44 Urine Protein Negative (Negative) 12/18/24 21:44 Urine Glucose (UA) Negative (Normal) 12/18/24 21:44 Urine Ketones Negative (Negative) 12/18/24 21:44 Urine Blood Negative (Negative) 12/18/24 21:44 Urine Nitrate Negative (Negative) 12/18/24 21:44 Urine Bilirubin Negative (Negative) 12/18/24 21:44 Urine Urobilinogen 0.2 mg/dL (Negative) 12/18/24 21:44 Ur Leukocyte Esterase Negative (Negative) 12/18/24 21:44 Urine RBC 0-2 /hpf (0-2) 12/18/24 21:44 Urine WBC 0-5 /hpf (0-5) 12/18/24 21:44 Ur Squamous Epith Cells 0-5 /hpf (0-5) 12/18/24 21:44 Amorphous Sediment Not Reportable 12/18/24 21:44 Urine Bacteria None seen /hpf (NONE) 12/18/24 21:44 Hyaline Casts 0-4 /lpf H 12/18/24 21:44 Salicylates < 0.3 mg/dL (3-10) L 12/18/24 20:44 Urine Opiates Screen Negative ng/mL (Negative) 12/18/24 21:44 Acetaminophen < 5.0 ug/mL (10-30) L 12/18/24 20:44 Ur Barbiturates Screen Negative ng/mL (Negative) 12/18/24 21:44 Ur Phencyclidine Scrn Negative ng/mL (Negative) 12/18/24 21:44 Ur Amphetamines Screen Negative ng/mL (Negative) 12/18/24 21:44 U Benzodiazepines Scrn Negative ng/mL (Negative) 12/18/24 21:44 Urine Cocaine Screen Negative ng/mL (Negative) 12/18/24 21:44 U Marijuana (THC) Screen Positive ng/mL (Negative) H 12/18/24 21:44 Ethyl Alcohol 64 mg/dL (0-10) H 12/18/24 20:44 No radiology studies performed this visit Discharge Plan Discharge Patient Disposition: Xfer Psychiatric Hosp Clinical Impression: Suicidal ideation Condition: Stable Discharge Diet: Usual diet Coding Level of Care Code ED Makeup Artistry Instructor for Arlet Martinez
--- NOTE | 2024-12-18 20:45 | PC.NURSE ---
96 Hour Involuntary Hold Patient Rights have been reviewed with the patient and a copy of the same has been provided to him. Prototyper Romy Bailey was present at bedside during the presentation of Rights.
[2024-12-18 20:55] LABS: Hematocrit 38.8 % (37-53); Hemoglobin 13.40 g/dL (11.27-16.99); Mean Corpuscular HGB Conc 34.5 g/dL (30-55); Mean Corpuscular Hemoglobin 29.8 pg (27-33); Mean Corpuscular Volume 86.2 fl (82-101); Nucleated Red Blood Cells % 0 %; Platelet Count 289 10^3/cmm (157-399); Red Blood Count 4.50 10^6/uL (3.85-5.65); White Blood Count 9.11 10^3/uL (3.29-11.43)
[2024-12-18 21:22] LABS: Alanine Aminotransferase 30 U/L (0-41); Albumin Level 4.7 g/dL (3.5-5.2); Alcohol Level 64 mg/dL (0-10); Alkaline Phosphatase 92 U/L (40-130); Anion Gap 16.5 (5-19); Aspartate Amino Transferase 22 U/L (0-40); Blood Urea Nitrogen 5 mg/dL (6-20); Calcium 8.8 mg/dL (8.5-10.5); Carbon Dioxide 23 mmol/L (22-29); Chloride 103 mmol/L (98-107); Globulin 2.5 g/dL (1.3-4.6); Glucose 85 mg/dL (65-115); Osmolality Calculated 285 mOsm/kg (285-295); Potassium 3.5 mmol/L (3.5-5.1); Sodium 139 mmol/L (136-145); Thyroid Stimulating Hormone 2.99 uIU/mL (0.27-4.20); Total Protein 7.2 g/dL (6.6-8.7)
[2024-12-18 21:25] LABS: Acetaminophen < 5.0 ug/mL (10-30); Creatinine Clr Calc Pharmacy 196.9610; Salicylate < 0.3 mg/dL (3-10)
--- NOTE | 2024-12-18 21:44 | ECG_ITS ---
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 Measurements Intervals [place] Rate: 60 P: 49 [place]: 149 QRS: 70 QRSD: 94 T: 55 QT: 384 QTc: 385 Interpretive Statements SINUS RHYTHM WITH MARKED SINUS ARRHYTHMIA POSSIBLE RIGHT VENTRICULAR CONDUCTION DELAY [RSR (QR) IN V1/V2] VOLTAGE CRITERIA FOR LVH [MEETS CRITERIA IN ONE OF: R(aVL), S(V1), R(V5), R(V5/V6)+S(V1)] Compared to ECG 07/02/2023 09:07:58 Left ventricular hypertrophy now present Incomplete right bundle-branch block no longer present Left posterior fascicular block no longer present Electronically Signed On 12-19-2024 17:46:18 CDT by Radha Gonzales M.D. [email or web address]
[2024-12-18 22:05] LABS: Glucose Urine UA Negative (Normal); Nitrate Urine Negative (Negative); Specific Gravity, Urine 1.003 (1.005-1.030)
[2024-12-18 22:10] LABS: Add Urine Microscopic? YES
[2024-12-18 22:12] LABS: PCP Screen Urine Negative (Negative)
[2024-12-18 23:43] VITALS: BP 149/90; PULSE 69; RESP 17; TEMP 37.1; O2SAT 100
[2024-12-19] VITALS (7 sets, daily range): BP systolic 140–156; BP diastolic 87–98; PULSE 62–81; RESP 17–18; TEMP 36.3–37; O2SAT 94–100; BMI 22.4
--- NOTE | 2024-12-19 06:28 | P.NPUHP_ITS ---
Providers/Chief Complaint 2 Admitting Physician: Norris Wilson MD Primary Care Provider: FARZAD Cano Chief Complaint: 96 HOUR HOLD HPI NPU History of Present Illness Juan Antonio Jaime is a 34 year old male who presented to the emergency department with the following report: Chief Complaint: Psychiatric Symptoms Stated Complaint: 96 HOUR HOLD Time Seen by Provider: 12/18/24 20:20 History of Present Illness: Patient is a 34-year-old male that was talking to a friend, and apparently or allegedly stated he was going to kill himself. Patient denies any such conversation. He has 96-hour hold papers. He has not been to psychiatric lubin. Denies any drug intake. Associated symptoms: Deny homicidal ideation or suicidal ideation. He was admitted to the neuropsychiatric unit for definitive treatment of those issues. He is unknown to [facility] psychiatry through inpatient or outpatient services and is unknown to any mental health or addiction services anywhere. He presented with a blood alcohol of 64 and a UDS positive for cannabis reporting that this was a misunderstanding. He acknowledges that he may have made a comment in relation to hurting himself but he reports it was the alcohol talking. 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 He presented today reporting: Chief complaint Acute exacerbation of anxiety and depressive symptoms following a stressful day. 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 Described recent stress related to moving out of an apartment into a camper on private land, managing scheduling, utilities installation, and coordinating logistics before leaving for a six-week work trip. Indicated that these circumstances have made things hectic and contributed to feeling upset. Described anxiety as a longstanding issue, identifying as a constant worrier particularly in relation to work responsibilities and scheduling. Noted that stress has increased recently due to financial strain from staying home longer than planned and needing to make up lost time at work. Denied experiencing persistent depression, stating that feelings of low mood were limited to the previous day and attributing them to having a bad day rather than ongoing depressive symptoms. Denied ever feeling suicidal or passively wishing not to wake up. Denied history of self-injurious behavior such as cutting or burning. Reported discomfort with large crowds but enjoys being outdoors; stated that outdoor gatherings do not bother him. 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 Also mentioned preferring gas pump readings to end on zeros, but denied broader obsessive- compulsive symptoms. Denied history of psychiatric hospitalization, counseling, or therapy as a child or adult. Reported brief participation in drug-in-law treatment around 2018?2019 but denied any possession-related legal issues or ongoing substance use concerns. Stated occasional beer consumption and use of marijuana for back pain since legalization, specifically avoiding prescription painkillers. Denied use of other substances including methamphetamine, opiates, mushrooms, or ecstasy. Family history notable for possible schizophrenia in a relative, though uncertain if formally diagnosed; sister is reportedly more knowledgeable about family mental health history. Denied family history of addiction (alcohol, drugs, gambling) and suicide attempts or deaths by suicide. Described parents fighting during childhood and subsequent separation in 1999; did not attribute separation to mental health issues and did not report abuse or neglect during childhood. Denied traumatic events in adult life that were difficult to process. Reported developing a heart murmur with irregular beat during infancy that resolved after approximately one year. No speech therapy, learning support, or special education classes required during school years. Reported quitting high school senior year and not completing GED after reviewing pretest materials. Reported being once and currently legally but not together with spouse. Has one biological daughter who will be eleven on March 09, 2025; attempts regular visitation every other weekend when home from work. Reported medical history includes splitting ears at age [age] or [age] and cutting tendon in left thumb requiring surgical repair; denied other surgeries or broken bones. Mental health history Had no prior psychiatric hospitalizations and no history of counseling or therapy. Never prescribed psychotropic medications for anxiety, depression, or other mental health conditions. Reports lifelong baseline anxiety related to occupational stress with occasional low mood during acute situational stressors but denies persistent depression. Denies past suicidal ideation, attempts, or self-injurious behavior. Endorses mild compulsive behaviors, such as arranging currency uniformly and ensuring precise fuel gauge readings. Family history significant for depression, anxiety, and a relative with schizophrenia. Social history Lives with girlfriend and her three children (ages 10, 17, and 20) in an apartment and arranging a move into a 31-foot camper on private land with water and power. Has one biological daughter (age 10, turning 11 on March 09, 2025) who is seen every other weekend. Works in the [employer] industry on a 28-days-on, 14-days-off schedule with next departure Friday; wakes most days by 4:30?5:00 AM and spends early hours fishing. Quit vaping, reports chewing tobacco since age 16?17 with cans lasting about one day and using pinch throughout the day. Drinks beer occasionally, often during work breaks, usually a six-pack of 12 oz bottles. Uses cannabis since legalization to relieve back pain from a radiculopathy. 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 Meds NPU Home Medications ?Medication ?Instructions ?Recorded ?Confirmed ?Last Taken ?Type No Known Home Medications 12/19/24/04/24 Unknown History Allergies Allergy/AdvReac Type Severity Reaction Status Date / Time Penicillins Allergy Mild HIVES Verified 07/02/23 08:59 PFS NPU 2 PFS: Social History Smoking and tobacco/nicotine status: former use of tobacco/nicotine Mental Status Exam 2 MSE Comments: This is a slender white male in hospital scrubs with appropriate grooming and eye contact. No abnormal movements except for mild psychomotor retardation. Cooperative with exam in no acute distress. Speech was normal rate and volume. Mood described as pretty good considering, affect congruent and euthymic. Thought process linear. Thought content: Patient denied suicidal or homicidal ideation, there were no delusions reported or noted, he did not report auditory or visual hallucinations. Reported feeling great today after experiencing a low mood recently, which was attributed to having a bad day. 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 Denied thoughts of violence or aggression against others. Experiences stress related to work schedule and moving to a new living situation. Denied visual hallucinations, delusions, and paranoia. Attention and concentration were intact and memory appeared reliable but none were formally tested. He is alert and oriented x 3. Insight, judgment and impulse control appeared fair. Vitals/I&O/Wt Last Vital Signs Temp 97.8 F 12/19/24 04:00 Pulse 80 12/19/24 04:00 Resp 17 12/19/24 04:00 BP 151/90 12/19/24 04:00 Pulse Ox 94 12/19/24 04:00 O2 Del Method Room Air 12/19/24 04:00 12/18/24 12/18/24 12/19/24 14:59 22:59 06:59 Intake Total 0 / 0 Balance 0 / 0 Weight last 48 hrs Weight 77.111 kg Data NPU 12/18/24 20:44 12/18/24 20:44 A&P Assessment and plan 1. Suicidal ideation: 2. Anxiety: 3. Alcohol intoxication: 4. 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 He endorses having anxiety and some occasional mood issues but nothing consistent with major depressive disorder and denies ever actively having passive wish or true suicidal thinking. He reports a desire to discharge as soon as possible after being evaluated. Anxiety is a chronic issue, with recent exacerbation due to situational stressors. No evidence of major depressive disorder; low mood described as transient and limited to a single day. No current or past suicidal ideation or self-injurious behavior. No psychotic symptoms, including paranoia, hallucinations, or delusions. No diagnosis of obsessive-compulsive disorder; compulsive behaviors limited to specific routines without functional impairment. No substance use disorder; alcohol and cannabis use reported as occasional and not problematic. Family history of schizophrenia noted, but no symptoms present. Plan Social workers will meet with the patient in the morning to obtain collateral information, including contacting the significant other and other relevant contacts to confirm the patient's current status and ensure comprehensive understanding of the situation. Information gathered will be communicated to Dr. Marquez prior to his evaluation to facilitate continuity of care. 1. Continue off of medication. 2. Continue every 15 minute checks for safety. 3. Encourage individual, group and milieu therapy. 4. Encourage sober living treatment after discharge at the highest level of care to which he is willing to commit. 5. Obtain collateral information. 6. Continue CIWA protocol. 7. Evaluate against the backdrop of the 96-hour hold PDMP PDMP Reviewed: Not Reviewed Involuntary Hold Information 2 Hold Status: Legal Status: 96 Hour Hold Date/Time Hold Expires: 0 12/24/24@0001 Attestations NPU 2 Medical Necessity Statement*: Inpatient hospitalization is medically necessary and the clinically appropriate intervention at this time. Will monitor/initiate medications and make changes as indicated. Patient will be in the hospital over 2 midnights. Likely length of stay 1-3 days. Coding Level of Care Code Acute Code for [facility] Fwd Diagnoses Suicidal ideation R45.851 Anxiety F41.9 Alcohol intoxication F10.929 Alcohol use F10.90
[2024-12-20] VITALS: BP 120/67; PULSE 63; RESP 16; TEMP 36.8; O2SAT 98
[2024-12-20 04:00] VITALS: BP 132/85; PULSE 65; RESP 14; TEMP 37.2; O2SAT 99
[2024-12-20 07:26] VITALS: BP 121/75; PULSE 73; RESP 16; TEMP 36.6; O2SAT 98
[2024-12-20] MEDS: multivitamin therapeutic Tablet 1 TAB PO (08:09)
[2024-12-20 11:58] VITALS: BP 148/92; PULSE 85; RESP 16; TEMP 36.6; O2SAT 100
[2024-12-20 16:00] VITALS: BP 146/91; PULSE 105; RESP 16; TEMP 36.7; O2SAT 97
--- NOTE | 2024-12-20 16:28 | P.NPUPN_ITS ---
Subjective NPU 2 Subjective: 34-year-old male admitted with suicidal ideation under context of alcohol abuse currently on a 96-hour hold. The patient had denied any suicidal thoughts. He had no active signs of drug or alcohol withdrawal. Patient had stated that he had made a mistake under the use of alcohol and had reported no significant history of alcohol abuse. He remained on a alcohol withdrawal protocol and did not require any Ativan for alcohol related withdrawal symptoms. Patient was quiet and somewhat cooperative on the milieu. He was able to attend groups. He had reported no prior history of depression and minimized any history of excessive anxiety or any prior history of suicide attempts. Mental Status Exam 2 MSE Comments: This is a slender white male in hospital scrubs with appropriate grooming and eye contact. No abnormal movements except for mild psychomotor retardation. He was cooperative with exam in no acute distress. His speech was normal in rate and volume. Mood described as good. His affect was restricted. Thought process was linear. Thought content: Patient denied suicidal or homicidal ideation. There were no delusions reported or noted, he did not report auditory or visual hallucinations. He Denied suicidal thoughts today. He denied any homicidal ideation. He Denied auditory or visual hallucinations, delusions, and paranoia. Attention and concentration were intact and memory appeared reliable but none were formally tested. He is alert and oriented x 3. Insight, judgment and impulse control appeared fair. Vitals/I&O/Wt Last Vital Signs Temp 98.1 F 12/20/24 16:00 Pulse 105 H 12/20/24 16:00 Resp 16 12/20/24 16:00 BP 146/91 12/20/24 16:00 Pulse Ox 97 12/20/24 16:00 O2 Del Method Room Air 12/20/24 16:00 Weight last 48 hrs Weight 75.07 kg Weight 77.111 kg Data NPU 12/18/24 20:44 12/18/24 20:44 A&P Assessment and plan 1. Suicidal ideation: 2. Anxiety: 3. Alcohol intoxication: 4. 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 He endorses having anxiety and some occasional mood issues but nothing consistent with major depressive disorder and denies ever actively having passive wish or true suicidal thinking. He reports a desire to discharge as soon as possible after being evaluated. Anxiety is a chronic issue, with recent exacerbation due to situational stressors. No evidence of major depressive disorder; low mood described as transient and limited to a single day. No current or past suicidal ideation or self-injurious behavior. No psychotic symptoms, including paranoia, hallucinations, or delusions. No diagnosis of obsessive-compulsive disorder; compulsive behaviors limited to specific routines without functional impairment. No substance use disorder; alcohol and cannabis use reported as occasional and not problematic. Family history of schizophrenia noted, but no symptoms present. Plan Social workers will meet with the patient in the morning to obtain collateral information, including contacting the significant other and other relevant contacts to confirm the patient's current status and ensure comprehensive understanding of the situation. Information gathered will be communicated to Dr. Marquez prior to his evaluation to facilitate continuity of care. 1. Continue off of medication. 2. Continue every 15 minute checks for safety. 3. Encourage individual, group and milieu therapy. 4. Encourage sober living treatment after discharge at the highest level of care to which he is willing to commit. 5. Obtain collateral information. 6. Continue CIWA protocol. 7. Evaluate against the backdrop of the 96-hour hold PDMP PDMP Reviewed: Not Reviewed Involuntary Hold Information 2 Hold Status: Legal Status: 96 Hour Hold Date/Time Hold Expires: 12/24/24 @ 00:01 Attestations NPU 2 Medical Necessity Statement*: Inpatient hospitalization is medically necessary and the clinically appropriate intervention at this time. Will monitor/initiate medications and make changes as indicated. The patient's likely length of stay 1-2 days. Coding Level of Care Code Acute Code for [facility] Fwd Diagnoses Suicidal ideation R45.851 Anxiety F41.9 Alcohol intoxication F10.929 Alcohol use F10.90
[2024-12-20 19:52] VITALS: BP 145/84; PULSE 63; RESP 17; O2SAT 100
[2024-12-21 06:00] VITALS: BP 115/75; PULSE 70; RESP 17; TEMP 36.8; O2SAT 98
--- NOTE | 2024-12-21 13:10 | P.NPUDS_ITS ---
Diagnoses at Discharge Discharge Diagnosis 1. Suicidal ideation: 2. Anxiety: 3. Alcohol intoxication: 4. Alcohol use: Reason for Visit Reason for Visit: 96 HOUR HOLD Brief History: History of Present Illness Juan Antonio Jaime is a 34 year old male who presented to the emergency department with the following report: Chief Complaint: Psychiatric Symptoms Stated Complaint: 96 HOUR HOLD Time Seen by Provider: 12/18/24 20:20 History of Present Illness: Patient is a 34-year-old male that was talking to a friend, and apparently or allegedly stated he was going to kill himself. Patient denies any such conversation. He has 96-hour hold papers. He has not been to psychiatric lubin. Denies any drug intake. Associated symptoms: Deny homicidal ideation or suicidal ideation. He was admitted to the neuropsychiatric unit for definitive treatment of those issues. He is unknown to [facility] psychiatry through inpatient or outpatient services and is unknown to any mental health or addiction services anywhere. He presented with a blood alcohol of 64 and a UDS positive for cannabis reporting that this was a misunderstanding. He acknowledges that he may have made a comment in relation to hurting himself but he reports it was the alcohol talking. 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 He presented today reporting: Chief complaint Acute exacerbation of anxiety and depressive symptoms following a stressful day. 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 Described recent stress related to moving out of an apartment into a camper on private land, managing scheduling, utilities installation, and coordinating logistics before leaving for a six-week work trip. Indicated that these circumstances have made things hectic and contributed to feeling upset. Described anxiety as a longstanding issue, identifying as a constant worrier particularly in relation to work responsibilities and scheduling. Noted that stress has increased recently due to financial strain from staying home longer than planned and needing to make up lost time at work. Denied experiencing persistent depression, stating that feelings of low mood were limited to the previous day and attributing them to having a bad day rather than ongoing depressive symptoms. Denied ever feeling suicidal or passively wishing not to wake up. Denied history of self-injurious behavior such as cutting or burning. Reported discomfort with large crowds but enjoys being outdoors; stated that outdoor gatherings do not bother him. 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 Also mentioned preferring gas pump readings to end on zeros, but denied broader obsessive- compulsive symptoms. Denied history of psychiatric hospitalization, counseling, or therapy as a child or adult. Reported brief participation in drug-in-law treatment around 2018?2019 but denied any possession-related legal issues or ongoing substance use concerns. Stated occasional beer consumption and use of marijuana for back pain since legalization, specifically avoiding prescription painkillers. Denied use of other substances including methamphetamine, opiates, mushrooms, or ecstasy. Family history notable for possible schizophrenia in a relative, though uncertain if formally diagnosed; sister is reportedly more knowledgeable about family mental health history. Denied family history of addiction (alcohol, drugs, gambling) and suicide attempts or deaths by suicide. Described parents fighting during childhood and subsequent separation in 1999; did not attribute separation to mental health issues and did not report abuse or neglect during childhood. Denied traumatic events in adult life that were difficult to process. Reported developing a heart murmur with irregular beat during infancy that resolved after approximately one year. No speech therapy, learning support, or special education classes required during school years. Reported quitting high school senior year and not completing GED after reviewing pretest materials. Reported being once and currently legally but not together with spouse. Has one biological daughter who will be eleven on March 09, 2025; attempts regular visitation every other weekend when home from work. Reported medical history includes splitting ears at age [age] or [age] and cutting tendon in left thumb requiring surgical repair; denied other surgeries or broken bones. Mental health history Had no prior psychiatric hospitalizations and no history of counseling or therapy. Never prescribed psychotropic medications for anxiety, depression, or other mental health conditions. Reports lifelong baseline anxiety related to occupational stress with occasional low mood during acute situational stressors but denies persistent depression. Denies past suicidal ideation, attempts, or self-injurious behavior. Endorses mild compulsive behaviors, such as arranging c urrency uniformly and ensuring precise fuel gauge readings. Family history significant for depression, anxiety, and a relative with schizophrenia. Social history Lives with girlfriend and her three children (ages 10, 17, and 20) in an apartment and arranging a move into a 31-foot camper on private land with water and power. Has one biological daughter (age 10, turning 11 on March 09, 2025) who is seen every other weekend. Works in the [employer] industry on a 28-days-on, 14-days-off schedule with next departure Friday; wakes most days by 4:30?5:00 AM and spends early hours fishing. Quit vaping, reports chewing tobacco since age 16?17 with cans lasting about one day and using pinch throughout the day. Drinks beer occasionally, often during work breaks, usually a six-pack of 12 oz bottles. Uses cannabis since legalization to relieve back pain from a radiculopathy. 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 Hospital Course Hospital Course During the hospitalization, the patient had routine laboratory studies which were within normal limits except for a few outliers.? Additionally, there was a general medical evaluation which was also within normal limits and revealed no new acute processes.? At the time of discharge, lethality was denied and psychosis was absent. Mood and anxiety were well managed.? The patient endorsed a plan to avoid all drugs of abuse and follow up with the aftercare recommendations of the treatment team.? He did not wish to consider medication options for managing depression or anxiety. He also refused outpatient therapy. The patient was evaluated and deemed to be absent credible lethality and had achieved the maximum benefit from an inpatient hospitalization, and so was discharged. ? Involuntary Hold Information Hold Status: Legal Status: 96 Hour Hold Date/Time Hold Expires: 12/24/24 @ 00:01 Mental Status Exam MSE Comments: This is a slender white male in hospital scrubs with appropriate grooming and eye contact. No abnormal movements except for mild psychomotor retardation. He was cooperative with exam in no acute distress. His speech was normal in rate and volume. Mood described as good. His affect was brighter on discharge. Thought process was linear. Thought content: Patient denied suicidal or homicidal ideation. There were no delusions reported or noted. He did not report auditory or visual hallucinations. He denied suicidal thoughts today. He denied any homicidal ideation. He denied auditory or visual hallucinations, delusions, and paranoia. Attention and concentration were intact and memory appeared reliable but none were formally tested. He is alert and oriented x 3. Insight, judgment and impulse control appeared fair. Discharge Data Studies Completed and Pending: Laboratory Results WBC 9.11 10^3/uL (3.2 9-11.43) 12/18/24 20:44 RBC 4.50 10^6/uL (3.8 5-5.65) 12/18/24 20:44 Hgb 13.40 g/dL (11.27 -16.99) 12/18/24: Hct 38.8 % (37-53) 12/18/24: MCV 86.2 fl (82-101) 12/18/24: MCH 29.8 pg (27-33) 12/18/24: MCHC 34.5 g/dL (30-55) 12/18/24:44 RDW 13.0 % (12.1-15.1 ) 12/18/24:44 Plt Count 289 10^3/cmm (157 -399) 12/18/24: MPV 9.5 fL (7.4-10.4) 12/18/24 20:44 Neut % (Auto) 79.0 % 12/18/24: Lymph % (Auto) 14.2 % 12/18/24: [place] % (Auto) 4.7 % 12/18/24: Eos % (Auto) 1.3 % 12/18/24:44 Baso % (Auto) 0.5 % 12/18/24:44 Neut # (Auto) 7.19 10^3/uL (1.8 -7.7) 12/18/24: Lymph # (Auto) 1.3 10^3/uL (0.8- 4.8) 12/18/24:44 [place] # (Auto) 0.4 10^3/uL (0.2- 0.9) 12/18/24 20:44 Eos # (Auto) 0.1 10^3/uL (0.0- 0.8) 12/18/24 20:44 Baso # (Auto) 0.1 10^3/uL (0.0- 0.1) 12/18/24 20:44 Nucleated RBC % (a uto) 0 % 12/18/24 20: Nucleated RBCs # 0.0 /100WBC 12/18/24 20:44 Sodium 139 mmol/L (136-1 45) 12/18/24:44 Potassium 3.5 mmol/L (3.5-5 .1) 12/18/24 20:44 Chloride 103 mmol/L (98-10 7) 12/18/24 20:44 Carbon Dioxide 23 mmol/L (22-29) 12/18/24:44 Anion Gap 16.5 (5-19) 12/18/24:44 BUN 5 mg/dL (6-20) L 12/18/24:44 Creatinine 0.6 mg/dL (0.7-1. 2) L 12/18/24 20:44 GFR Calculation 156.1 mL/min (90- 130) H 12/18/24 20:44 Glucose 85 mg/dL (65-115) 12/18/24 20:44 Calculated Osmolal ity 285 mOsm/kg (285- 295) 12/18/24:44 Calcium 8.8 mg/dL (8.5-10 .5) 12/18/24 20:44 Total Bilirubin 0.4 mg/dL (0.15-1 .2) 12/18/24 20:44 AST 22 U/L (0-40) 12/18/24:44 ALT 30 U/L (0-41) 12/18/24 20:44 Alkaline Phosphata se 92 U/L (40-130) 12/18/24 20:44 Total Protein 7.2 g/dL (6.6-8.7 ) 12/18/24:44 Albumin 4.7 g/dL (3.5-5.2 ) 12/18/24 20:44 Globulin 2.5 g/dL (1.3-4.6 ) 12/18/24 20:44 TSH 2.99 uIU/mL (0.27 -4.20) 12/18/24 20:44 Urine Color Yellow (Yellow) 12/18/24 21:44 Urine Appearance Clear (CLEAR) 12/18/24 21:44 Urine pH 6.0 (5-7) 12/18/24 21:44 Ur Specific Gravit y 1.003 (1.005-1.0 30) L 12/18/24 21:44 Urine Protein Negative (Negati ve) 12/18/24 21:44 Urine Glucose (UA) Negative (Normal ) 12/18/24 21:44 Urine Ketones Negative (Negati ve) 12/18/24 21:44 Urine Blood Negative (Negati ve) 12/18/24 21:44 Urine Nitrate Negative (Negati ve) 12/18/24 21:44 Urine Bilirubin Negative (Negati ve) 12/18/24 21:44 Urine Urobilinogen 0.2 mg/dL (Negati ve) 12/18/24 21:44 Ur Leukocyte Emily ase Negative (Negati ve) 12/18/24 21:44 Urine RBC 0-2 /hpf (0-2) 12/18/24 21:44 Urine WBC 0-5 /hpf (0-5) 12/18/24 21:44 Ur Squamous Epith Cells 0-5 /hpf (0-5) 12/18/24 21:44 Amorphous Sediment Not Reportable 12/18/24 21:44 Urine Bacteria None seen /hpf (N ONE) 12/18/24 21:44 Hyaline Casts 0-4 /lpf H 12/18/24 21:44 Salicylates < 0.3 mg/dL (3-10 ) L 12/18/24 20:44 Urine Opiates Scre en Negative ng/mL (N egative) 12/18/24 21:44 Acetaminophen < 5.0 ug/mL (10-3 0) L 12/18/24 20:44 Ur Barbiturates Sc reen Negative ng/mL (N egative) 12/18/24 21:44 Ur Phencyclidine S crn Negative ng/mL (N egative) 12/18/24 21:44 Ur Amphetamines Sc reen Negative ng/mL (N egative) 12/18/24 21:44 U Benzodiazepines Scrn Negative ng/mL (N egative) 12/18/24 21:44 Urine Cocaine Scre en Negative ng/mL (N egative) 12/18/24 21:44 U Marijuana (THC) Screen Positive ng/mL (N egative) H 12/18/24 21:44 Ethyl Alcohol 64 mg/dL (0-10) H 12/18/24 20:44 Vitals: Last Vital Signs Temp 98.2 F 12/21/24 06:00 Pulse 70 12/21/24 06:00 Resp 17 12/21/24 06:00 BP 115/75 12/21/24 06:00 Pulse Ox 98 12/21/24 06:00 O2 Del Method Room Air 12/21/24 06:00 Discharge Plan Discharge Patient Disposition: Home Condition: Stable Prescriptions: No Action No Known Home Medications Discharge Order = DC NOW: Discharge Order (Routine); Ordered 12/21/24 Ordered By: Titus Marquez Referrals: [facility] [Outside, Behavioral Health] Referral Note: Walk in from 7:30 am to 3:30 pm Friday through Friday. Clarice Oliveira FNP-C [Primary Care Provider, [facility]] - 12/22/24 1:20 pm Mauro Shipman NP [Nurse Practitioner, [facility]] Discharge Diet: Usual diet Patient Instructions: Abuse of Alcohol (DC), Opioid Safety, Patient Portal & Rach Instructions Discharge Attestations NPU Time Spent in Discharge Care*: less than 30 min Specific Discharge Activities: Specific discharge activities: educating patient, discussing with case specialist/social workers/dc planners and documenting/other paperwork Coding Level of Care Code Acute Code for Chg Fwd Diagnoses Suicidal ideation R45.851 Anxiety F41.9 Alcohol intoxication F10.929 Alcohol use F10.90
[2024-12-21 13:20] VITALS: BP 121/74; PULSE 78; RESP 18; TEMP 36.8; O2SAT 98
[2024-12-21 13:54] VITALS: BP 144/74; PULSE 68; RESP 16; TEMP 37; O2SAT 100
== END 2024-12-21 14:21 | disposition home or self-care (01) | DRG 881 ==
LOC: ER 23:05 → NP 23:30
PROVIDERS: Admitting Provider Psychiatry & Neurology Psychiatry; Emergency Provider Physician Assistant; PCP Nurse Practitioner Family; Visit Provider Psychiatry & Neurology Psychiatry
DX: F32.A Depression, unspecified (principal); F41.9 Anxiety disorder, unspecified; F10.129 Alcohol abuse with intoxication, unspecified; Y90.3 Blood alcohol level of 60-79 mg/100 ml; Z87.891 Personal history of nicotine dependence
CPT/HCPCS: 36415; 80053; 80306; 80307; 81001; 84443; 85025; 93005; 97150; 97165; 99285; J9999